=== PATIENT | female | born 1945 | race Caucasian/White ===

== ENCOUNTER → 2016-09-26 | Outpatient (CLI) | payer BC, MEDICARE ==
[~2016-09-26] MED LIST: ADVAIR 250/5028 PUFF IN; ALPRAZOLAM0.25 MG PO; CLOPIDOGREL75 MG PO; ESTRADIOL2 MG OR; FLUTICASONE 50M16 GM; HYOMAX-SR0.375 MG PO; IPRATROPIUM BROM3 M2 IH; LEVOCETIRIZINE D5 MG PO; LISINOPRIL5 MG PO; PREDNISONE 20MG20 MG PO; PROTONIX 40MG T40 MG PO; VENTOLIN H0.09 MG/AC IH; ZOFRAN4 MG PO
== END ==
LOC: RT 13:39
DX: J47.9 Bronchiectasis, uncomplicated (principal)

== ENCOUNTER 2017-04-09 06:53 | Day surgery (SDC) | payer BC, MEDICARE ==
[~2017-04-09] VITALS: Ht 168.9 cm; Wt 59.9 kg
--- NOTE | 2017-04-09 08:23 | Operative Note ---
Upper GI Endoscopy Procedure date: 04/09/17 Date of : 43 Procedure:Upper GI Endoscopy Esophagogastroduodenoscopy with cold biopsies and TTS balloon dilation Indications: Mrs. Fregoso is a 71-year-old female with a history of hematemesis. She does have a history of chronic obstructive pulmonary disease and bronchiectasis and is on home oxygen. She has had bronchoscopy by Dr. Bueno and also saw Dr. Kahn in pulmonary medicine and they do not feel that this represents hemoptysis. She was on Plavix. The patient was having some bloating and dyspepsia. She has chronic dysphagia and has had prior esophageal dilation. The patient's mother had colon cancer in her early 80s and she has 8 out of 10 in maternal aunts and uncles with colon cancer and a maternal nephew with colon cancer at the age of 27. The patient last endoscopy was more than 10 years ago. She did have a negative Cologuard test recently. She reports no melena. The patient's constipation is well controlled with MiraLAX plus Citrucel. 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 Performing Provider: Chi De La Torre MD Referring Provider: Nghia Rosa M.D. Sedation: MAC sedation Procedure: Prior to the procedure, a history and physical exam was performed, and patients medications and allergies were reviewed. The risks and benefits of the procedure and the sedation options and risks were discussed with the patient. All questions were answered and informed consent was obtained. The patient was brought to the procedure room. Patient identification and proposed procedure were verified by the physician and the nurse. The patient was placed in a left lateral decubitus position and the scope was passed under direct vision. Throughout the procedure, the patient's blood pressure, pulse, and oxygen saturations were monitored continuously. The endoscope was introduced through the mouth, and advanced to the second part of duodenum. The upper GI endoscopy was accomplished without difficulty. The patient tolerated the procedure well. Findings: The scope was passed directly into the upper esophagus and advanced to the third portion of the duodenum. The post bulbar duodenum and duodenal bulb were normal with normal mucosa and conniventes. The scope was withdrawn through a normal duodenal bulb and pylorus into the stomach. There were multiple gastric fundic gland polyps and the largest was removed via cold biopsy. Upon retroflexion there was a small 2 cm hiatal hernia. There was minimal linear reactive gastritis. The scope was then withdrawn into the esophagus. There was a Schatzki 's ring distally that was dilated to 60 [place]/20 mm with a TTS hydrostatic balloon. There was no evidence of reflux esophagitis or Vergara's. The remainder of the esophageal mucosa was normal. Immediate complications: None EBL (ml): 0 Impression: 1. Schatzki's ring dilated to 20 mm 2. Small 2 cm hiatal hernia 3. Multiple gastric fundic gland polyps Recommendations: There was no source of hematemesis from the upper gastrointestinal tract. I will discuss the findings with the patient and family. The patient does have relatively high risk for sedation because of her pulmonary disease but I would still recommend screening colonoscopy based upon her strong family history and lack of recent screening and symptoms. at [id number]
[2017-04-09 09:37] VITALS: BP 150/67
== END 2017-04-09 09:31 | disposition home or self-care (01) ==
LOC: SDC 06:53
PROVIDERS: Internal Medicine Gastroenterology
PROC: 0D758ZZ Dilation of Esophagus, Via Natural or Artificial Opening Endoscopic (ICD-10-PCS; 2017-04-09)
PROC: 0DB68ZX Excision of Stomach, Via Natural or Artificial Opening Endoscopic, Diagnostic (ICD-10-PCS; principal; 2017-04-09 08:00)
DX: K22.2 Esophageal obstruction (principal); K44.9 Diaphragmatic hernia without obstruction or gangrene; K31.7 Polyp of stomach and duodenum; Z80.0 Family history of malignant neoplasm of digestive organs
CPT/HCPCS: C1726

== ENCOUNTER → 2017-04-17 | Outpatient (CLI) | payer BC, MEDICARE ==
[2017-04-18 09:37] LABS: Immunoglobulin E, Total 140 IU/mL (0-100)
[2017-04-18 12:36] LABS: Immunoglobulin A, Qn 354 mg/dL (64-422); Immunoglobulin M, Qn 58 mg/dL (26-217)
[2017-04-23 18:36] LABS: IgG, Subclass 1 541 mg/dL (248-810); IgG, Subclass 2 294 mg/dL (130-555); IgG, Subclass 3 19 mg/dL (15-102); IgG, Subclass 4 169 mg/dL (2-96); Immunoglobulin G, Qn 915 mg/dL (700-1600)
== END ==
LOC: LAB 11:31
PROVIDERS: Internal Medicine Infectious Disease
DX: A31.0 Pulmonary mycobacterial infection (principal); R91.1 Solitary pulmonary nodule; R09.02 Hypoxemia; J47.9 Bronchiectasis, uncomplicated